=== PATIENT | female | born 1960 | race Caucasian/White ===

== ENCOUNTER → 2021-05-03 | Outpatient (CLI) | payer BC ==
[2021-05-03 11:46] LABS: HEMOGLOBIN 15.2 gm/dl (12.3-15.3); RED BLOOD COUNT 5.15 M/UL (4.00-5.10); WHITE BLOOD COUNT 6.1 K/UL (4.5-11.0)
[2021-05-03 11:57] LABS: BUN/CREATININE RATIO 15 (0-10)
[2021-05-04 07:11] LABS: RHEUMATOID ARTHRITIS FACTOR <10.0 IU/mL (0.0-13.9); VITAMIN D, 25-HYDROXY 28.3 ng/mL (30.0-100.0)
[2021-05-05 01:12] LABS: CCP ANTIBODIES IGG/IGA 5 units (0-19)
== END ==
LOC: LAB 10:23
PROVIDERS: Nurse Practitioner Family
DX: M25.50 Pain in unspecified joint (principal); M79.641 Pain in right hand; M79.642 Pain in left hand; M54.9 Dorsalgia, unspecified; R53.83 Other fatigue; M79.10 Myalgia, unspecified site; M46.1 Sacroiliitis, not elsewhere classified
CPT/HCPCS: 36415; 72202; 73130; 80053; 82550; 82728; 83520; 85025; 85652; 86140; 86200; 86431